=== PATIENT | male | born 1980 | race Caucasian/White ===

== ENCOUNTER 2025-09-12 12:26 | Day surgery (SDC) | payer OTHER ==
--- NOTE | 2025-09-05 14:16 | ELECTROCARDIOGRAPH REPORT ---
[facility] Test Date: 2025-09-05 Test Time: 14:14:18 Pat Name: STEPHEN ROBERTS Department: [facility]-PRE-OP Patient ID: [id number] Room: Gender: M Medical Coding Specialist: albert : 1980 Requested By: DEMARCUS CANALES Order Number: [id number] Reading MD: Dr. Negro Elizabeth Measurements Intervals [place] Rate: 57 P: 57 [place]: 147 QRS: 34 QRSD: 100 T: 32 QT: 412 QTc: 401 Interpretive Statements Sinus bradycardia Abnormal R-wave progression, early transition Electronically Signed On 09-06-2025 13:24:[address] Negro Elizabeth Please click the below link to view image of tracing.
[2025-09-05 14:23] LABS: MEAN PLATELET VOLUME 8.1 FL (7.4-10.4); PRE OP HEMATOCRIT 42.4 % (42.0-52.0); PRE OP HEMOGLOBIN 14.5 g/dL (14.0-17.9); PRE OP PLATELET COUNT 247 X10'3 (140-440); PRE OP WHITE BLOOD COUNT 6.1 10'3 (4.8-10.8); RED CELL DISTRIBUTION WIDTH 13.2 % (11.5-14.5)
[2025-09-05 14:37] LABS: CREATININE 0.96 MG/DL (0.60-1.10); PRE OP ALT 33 U/L (30-65); PRE OP ANION GAP 7 (8-16); PRE OP AST 19 U/L (10-37); PRE OP BILIRUB, TOTAL 0.9 MG/DL (0.0-1.0); PRE OP GLUCOSE 99 MG/DL (70-104); PRE OP POTASSIUM 4.3 MMOL/L (3.4-5.1); PRE OP SODIUM 141 MMOL/L (135-145); TOTAL CARBON DIOXIDE 30.0 MMOL/L (24-32); eGFR 86 ML/MIN
[~2025-09-12] VITALS: Ht 182.9 cm; Wt 91.1 kg
[2025-09-12] VITALS (11 sets, daily range): BP systolic 133–168; BP diastolic 75–103; PULSE 53–80; RESP 12–19; TEMP 97.9; O2SAT 95–100
[~2025-09-12 12:26] MED LIST: NO HOME MEDS
[2025-09-12] MEDS ORDERED: morphine 4 MG/ML inj SYRINge IV PRN (13:05)
[2025-09-12] MEDS ORDERED: hydrALAZINE 20mg/ml inj. IV PRN (13:05)
[2025-09-12] MEDS ORDERED: fentaNYL/PF 50MCG/1 ML 2ML syringe IV PRN ×2 (13:05)
[2025-09-12] MEDS ORDERED: labetalol 20mg/4ml (5mg/ml) syringe IV PRN (13:05)
[2025-09-12] MEDS ORDERED: ondansetron/PF 4mg/2ml inj IV PRN (13:05)
[2025-09-12] MEDS ORDERED: ringers solution, lacted 1,000 ML IV SCH (13:05)
[2025-09-12] MEDS: ringers solution, lacted 1,000 ML IV SCH (13:06)
[2025-09-12] MEDS ORDERED: dexamethasone 4mg/ml inj ONE (14:40)
[2025-09-12] MEDS ORDERED: midazolam 1 mg/ML 2ml injection ONE (14:50)
[2025-09-12] MEDS ORDERED: fentaNYL/PF 50MCG/1 ML 2ML syringe ONE (14:50)
[2025-09-12] MEDS ORDERED: LIDOcaine 1% 30ml preserv. free vial ONE (14:53)
[2025-09-12] MEDS ORDERED: BUPIVAcaine 2.5mg/ml inj 50ml vial (contains preservative) ONE (14:53)
[2025-09-12] MEDS ORDERED: BUPIVACAINE liposomal/PF 13.3 MG/ML 10mL vial IM ONE (14:54)
[2025-09-12] MEDS ORDERED: rocuronium 10mg/ml inj IV ONE ×2 (14:56)
[2025-09-12] MEDS ORDERED: LIDOcaine 2% (20mg/ml) 5ml vial ONE (14:56)
[2025-09-12] MEDS ORDERED: propofol inj 20 ML IV ONE (14:56)
[2025-09-12] MEDS ORDERED: ondansetron/PF 4mg/2ml inj ONE (14:56)
[2025-09-12] MEDS ORDERED: acetaminophen 1,000mg/100ml IV 100 ML IV ONE (14:56)
[2025-09-12] MEDS: ceFAZolin 2gm/dext,iso 50mL 50 ML IV ONE (15:00)
[2025-09-12] MEDS ORDERED: glycopyrrolate 0.2mg/ml inj ONE (15:04)
--- NOTE | 2025-09-12 15:04 | HISTORY AND PHYSICAL ---
History & Physical Providers to CC CC: DEMARCUS CANALES MD ~ History of Present Illness Reason for Admit\Complaint: Umbilical hernia History of Present Illness Interval history and physical exam Patient here today for elective repair of a presumed work-related umbilical hernia He denies any change in his past medical history since he was seen in the office last month (please see previous history and physical exam for all pertinent details) He is scheduled for robotic assisted, laparoscopic umbilical hernia repair with mesh Allergies: Coded Allergies: levofloxacin (Verified Allergy, Unknown, 09/11/25) Home Medications Home Medications Active Reported No Home Medications (Home Med List) Each Exam General: 44-year-old male in no acute distress Chest: Lungs are clear to auscultation bilaterally Cardiovascular: Regular rate and rhythm without murmurs Abdomen: Soft and nondistended Mostly reducible umbilical hernia Problems: (1) Umbilical hernia Assessment & Plan: The risks, benefits, and alternatives to a robotic assisted, laparoscopic umbilical hernia repair with mesh were discussed with the patient. Risks include, but are not limited to, bleeding, infection, injury to intra- abdominal structures, hernia recurrence and chronic postoperative pain. Patient verbalized understanding and wishes to proceed with surgery. We will do so today as scheduled DEMARCUS CANALES MD Sep 12, 2025 15:04
[2025-09-12] MEDS ORDERED: oxyCODONE/APAP 5-325mg tablet PO PRN (16:25)
--- NOTE | 2025-09-12 16:30 | OPERATIVE REPORT ---
Operative Report Providers to CC CC: JAKE CANALES MD ~ Date of Procedure: Sep 12, 2025 Pre-Operative Diagnosis: Umbilical hernia Post-Operative Diagnosis 2 cm umbilical hernia Procedure Performed Robotic assisted, laparoscopic 2 cm umbilical hernia repair with a mesh Bilateral transversus abdominis plane nerve blocks by injection Surgeon: Jake Canales MD FACS Php Engineer None Anesthesiologist: Gordon Nicolas Type of Anesthesia: General Findings: 2 cm fascial defect with herniated preperitoneal fat Wound Class I Complications None Prosthetics\Implants used: 12 cm diameter coated polyester mesh Estimated Blood Loss: Minimal Specimen Removed: None Description of Procedure: Patient was brought to the operating room and identified by the nursing staff and the attending physician. Patient was placed supine and a general anesthesia was induced. Preoperative antibiotics were given. The abdomen was prepped and draped in the standard sterile fashion. Through a left subcostal stab incision the abdomen was accessed with a Veress needle technique. Abdomen was insufflated without incident. The incision was lengthened to accommodate a 12 mm optical trocar and the abdomen was entered under laparoscopic visualization. The abdomen was surveyed laparoscopically. There was an obvious hernia defect at the level of the umbilicus with no herniated intra-abdominal contents. Under laparoscopic visualization, robotic trochars were placed in the left lateral and left lower quadrant. The da Meron robotic arm was docked to the patient and instruments guided intra-abdominally under laparoscopic visualization. Peritoneal rent was created just lateral to the umbilicus and carried towards the midline. Infraumbilical fat pad was mobilized inferiorly about 6 cm and falciform ligament was mobilized superiorly with the mobilized umbilical hernia sac and attached preperitoneal fat, allowing adequate space for mesh deployment. Fascial defect(s) were then reapproximated with running, long-absorbable, 0V lock suture. Good fascial apposition was obtained without significant tension. A coated polyester mesh was then fixed to the anterior abdominal wall with running, absorbable, 2/0, V lock suture. Mesh laid without wrinkles or folds. The mesh measured 12 cm in diameter The da Meorn instruments were then removed and the robot undocked from the patient. Bilateral transversus abdominis plane nerve blocks by injection were then placed under laparoscopic visualization using a combination of Marcaine and Exparel. The left subcostal trocar was removed and its fascia closed percutaneously with 0 Vicryl suture under laparoscopic visualization. Remaining trochars were removed after the abdomen was allowed to deflate. Skin was closed at all sites with 4-0 Monocryl sutures and dressed with sterile dressings. Leelee ent was awakened and taken to the postanesthesia care unit in stable condition. Counts repoted as correct: Yes JAKE CANALES MD Sep 12, 2025 16:30
== END 2025-09-12 17:38 | disposition home or self-care (01) ==
LOC: PAS 12:26
PROVIDERS: ATTEND Surgery
DX: K42.9 Umbilical hernia without obstruction or gangrene (principal); R94.31 Abnormal electrocardiogram [ECG] [EKG]; I10 Essential (primary) hypertension; K21.9 Gastro-esophageal reflux disease without esophagitis; Z98.890 Other specified postprocedural states; Z88.1 Allergy status to other antibiotic agents
CPT/HCPCS: 36415; 49591; 64488; 80053; 82948; 85025; 93005; C1781; J0131; J0666; J1100; J2003; J2250; J2270; J2405; J2704; J3010; J3490; J7030; J7120; Z7506; Z7508; Z7512; A4215; A4618